=== PATIENT | female | born 1980 | race Caucasian/White ===

== ENCOUNTER 2018-02-05 15:17 | Emergency (ER) | payer MEDICAID, OTHER ==
[~2018-02-05] VITALS: Ht 172.7 cm; Wt 77.5 kg
[~2018-02-05 15:17] MED LIST: CYCL-1 PO; NO HOME MEDS
[2018-02-05] MEDS ORDERED: CefTRIAXone 2gm/D5W 50ml 50 ML IV ONE (15:30)
[2018-02-05] MEDS ORDERED: morphine 4 MG/ML inj SYRINge IV ONE (15:30)
[2018-02-05] MEDS ORDERED: ketorolac trometh. 30mg/ml inj. IV ONE (15:30)
[2018-02-05] MEDS ORDERED: methylPREDNISolone sod succ 125mg/2ml vial IV ONE (15:30)
[2018-02-05] MEDS ORDERED: normal saline 1000ML IV soln IV ONE (15:30)
[2018-02-05 16:07] LABS: BASOPHILS % (AUTO) 0.2 % (0-1); EOSINOPHILS % (AUTO) 0.2 % (0-6); HEMATOCRIT 39.9 % (35.0-45.0); HEMOGLOBIN 13.2 g/dl (12.0-16.0); LYMPHOCYTES # (AUTO) 1.2 X10'3 (1.1-4.8); LYMPHOCYTES % (AUTO) 5.9 % (21-51); MEAN CORPUSCULAR HEMOGLOBIN 30.3 PG (27.0-31.0); MEAN CORPUSCULAR HGB CONC 33.2 % (33.0-36.5); MEAN CORPUSCULAR VOLUME 91.2 FL (78-98); MEAN PLATELET VOLUME 7.5 FL (7.4-10.4); MONOCYTES # (AUTO) 1.6 X10'3 (0-0.9); NEUTROPHILS # (AUTO) 16.9 X10'3 (1.8-7.7); NEUTROPHILS % (AUTO) 85.7 % (42-75); PLATELET COUNT 325 X10'3 (140-440); RED BLOOD COUNT 4.38 X10'6 (4.20-5.60); RED CELL DISTRIBUTION WIDTH 13.6 % (11.5-14.5); WHITE BLOOD COUNT 19.7 X10'3 (4.5-11.0)
[2018-02-05] MEDS ORDERED: iohexol 300mg/ml 100ml inj. ONE (16:19)
[2018-02-05 16:21] LABS: ALANINE AMINOTRANSFERASE 17 U/L (12-78); ALBUMIN 2.5 G/DL (3.4-5.0); ALBUMIN/GLOBULIN RATIO 0.5 (1.1-1.5); ALKALINE PHOSPHATASE 110 IU/L (46-116); ANION GAP 4 (8-16); ASPARTATE AMINO TRANSFERASE 11 U/L (10-37); BILIRUBIN,TOTAL 0.3 MG/DL (0.1-1.0); BLOOD UREA NITROGEN 7 MG/DL (7-18); CHLORIDE 97 MMOL/L (99-107); CREATININE 0.88 MG/DL (0.40-0.90); GLUCOSE 109 MG/DL (70-104); POTASSIUM 3.3 MMOL/L (3.5-5.1); SODIUM 134 MMOL/L (135-145); TOTAL CARBON DIOXIDE 33.4 MMOL/L (24-32); TOTAL PROTEIN 7.5 G/DL (6.4-8.2); eGFR 73 ML/MIN
[2018-02-05] MEDS ORDERED: potassium Cl oral solution 20 MEQ/15 ML PO ONE (16:50)
[2018-02-05] MEDS ORDERED: METH4TAB3 PO (17:45)
[2018-02-05] MEDS ORDERED: HYDR-4383 PO (17:45)
[2018-02-05] MEDS ORDERED: ONDA4TAB6 PO (17:45)
[2018-02-05] MEDS ORDERED: LIDO20SO16 PO (17:45)
[2018-02-05] MEDS ORDERED: PENI250T2 PO (17:45)
[2018-02-05] MEDS ORDERED: ondansetron/PF 4mg/2ml inj IV ONE (18:30)
[2018-02-05 18:54] VITALS: BP 128/69
== END 2018-02-05 19:01 | disposition home or self-care (01) ==
LOC: ER 15:17
DX: J02.0 Streptococcal pharyngitis (principal); F12.90 Cannabis use, unspecified, uncomplicated; Z90.710 Acquired absence of both cervix and uterus; Z56.0 Unemployment, unspecified; Z88.5 Allergy status to narcotic agent; Z79.899 Other long term (current) drug therapy
CPT/HCPCS: 36415; 70491; 71045; 80053; 83605; 85025; 87040; 96365; 96375; 99285; J0696; J1885; J2270; J2405; J2930; Q9967

== ENCOUNTER 2018-06-22 21:00 | Emergency (ER) | payer MEDICAID, OTHER ==
[~2018-06-22] VITALS: Ht 172.7 cm; Wt 70.0 kg
[~2018-06-22 21:00] MED LIST changes: -CYCL-1 PO; +HYDR-4383 PO; +LIDO20SO16 PO; +METH4TAB3 PO; +ONDA4TAB6 PO
[2018-06-22 21:04] VITALS: BP 131/83
[2018-06-22 21:34] LABS: CLARITY,URINE CLEAR (Clear); COLOR,URINE YELLOW (Yellow); GLUCOSE, URINE NEGATIVE (Neg); KETONES,URINE NEGATIVE (Neg); LEUKOCYTE ESTERASE ,URINE NEGATIVE (Neg); NITRITES, URINE NEGATIVE (Neg); OCCULT BLOOD,URINE NEGATIVE (Neg); PH,URINE 5.5 (4.8-8.0); PROTEIN,URINE NEGATIVE (Neg); URINE HCG NEGATIVE (NEG); UROBILINOGEN,URINE 0.2 E.U/dL (0.2-1.0)
[2018-06-22 21:35] LABS: UA COLLECTION TYPE CLN CATCH MIDSTREAM
[2018-06-22] MEDS ORDERED: METR500T PO (22:34)
[2018-06-22] MEDS ORDERED: azithromycin 250mg tablet PO ONE (22:35)
[2018-06-22] MEDS ORDERED: CefTRIAXone 250MG inj IM ONE (22:35)
== END 2018-06-22 22:45 | disposition home or self-care (01) ==
LOC: ER 21:01
DX: A64 Unspecified sexually transmitted disease (principal); R19.7 Diarrhea, unspecified; F12.10 Cannabis abuse, uncomplicated; R10.30 Lower abdominal pain, unspecified; Z90.710 Acquired absence of both cervix and uterus; Z56.0 Unemployment, unspecified; Z88.5 Allergy status to narcotic agent
CPT/HCPCS: 36415; 81003; 81025; 87210; 87491; 87591; 99283; J0696

== ENCOUNTER 2019-09-14 03:34 | Emergency (ER) | payer MEDICAID ==
[~2019-09-14] VITALS: Ht 172.7 cm; Wt 79.5 kg
[2019-09-14 03:37] VITALS: BP 154/95
[2019-09-14] MEDS ORDERED: TETanus/Pertussis (Acell)/Diphther VAC/PF (Tdap-Adult) 0.5ml syringe IMVAC ONE (03:45)
[2019-09-14] MEDS ORDERED: amox tr/potassium clavulanate 875/125mg TAB PO ONE (03:45)
[2019-09-14] MEDS ORDERED: AMOX-580 PO (03:46)
== END 2019-09-14 04:03 | disposition home or self-care (01) ==
LOC: ER 03:35
DX: S91.331A Puncture wound without foreign body, right foot, initial encounter (principal); L03.115 Cellulitis of right lower limb; K08.89 Other specified disorders of teeth and supporting structures; F17.210 Nicotine dependence, cigarettes, uncomplicated; F12.90 Cannabis use, unspecified, uncomplicated; F19.90 Other psychoactive substance use, unspecified, uncomplicated; Z90.710 Acquired absence of both cervix and uterus; Z98.890 Other specified postprocedural states; Z72.89 Other problems related to lifestyle; Z56.0 Unemployment, unspecified; Z88.8 Allergy status to other drugs, medicaments and biological substances; Z79.2 Long term (current) use of antibiotics; Z79.899 Other long term (current) drug therapy; W50.0XXA Accidental hit or strike by another person, initial encounter; Y93.89 Activity, other specified; Y92.89 Other specified places as the place of occurrence of the external cause; Y99.8 Other external cause status
CPT/HCPCS: 90471; 90715; 99283

== ENCOUNTER 2020-05-20 23:25 | Emergency (ER) | payer MEDICAID ==
[~2020-05-20] VITALS: Ht 172.7 cm; Wt 80.1 kg
[2020-05-20 23:46] VITALS: BP 135/75
[2020-05-21] MEDS ORDERED: dexamethasone sod phosphate 10mg/ml inj IV STA (00:57)
[2020-05-21] MEDS ORDERED: CLINDAMYCIN/D5W 900mg/50ml 50 ML IV ONE (01:00)
[2020-05-21] MEDS ORDERED: normal saline 1000ML IV soln IVB ONE (01:00)
[2020-05-21 01:53] LABS: BASOPHILS # (AUTO) 0.1 X10'3 (0-0.2); BASOPHILS % (AUTO) 1.2 % (0-1); EOSINOPHILS # (AUTO) 0.2 X10'3 (0-0.9); EOSINOPHILS % (AUTO) 3.4 % (0-6); HEMOGLOBIN 12.2 g/dl (12.0-16.0); LYMPHOCYTES # (AUTO) 1.3 X10'3 (1.1-4.8); MEAN CORPUSCULAR HEMOGLOBIN 28.5 PG (27.0-31.0); MEAN CORPUSCULAR HGB CONC 32.1 g/dL (33.0-36.5); MEAN CORPUSCULAR VOLUME 88.8 FL (78-98); MEAN PLATELET VOLUME 7.7 FL (7.4-10.4); MONOCYTES # (AUTO) 0.7 X10'3 (0-0.9); MONOCYTES % (AUTO) 9.9 % (2-12); NEUTROPHILS # (AUTO) 4.3 X10'3 (1.8-7.7); NEUTROPHILS % (AUTO) 65.5 % (42-75); PLATELET COUNT 219 X10'3 (140-440); RED BLOOD COUNT 4.29 X10'6 (4.20-5.60); RED CELL DISTRIBUTION WIDTH 14.9 % (11.5-14.5); WHITE BLOOD COUNT 6.6 X10'3 (4.5-11.0)
[2020-05-21] MEDS ORDERED: iohexol 300mg/ml 100ml inj. ONE (01:59)
[2020-05-21 02:05] LABS: ALANINE AMINOTRANSFERASE 23 U/L (12-78); ALBUMIN 3.2 G/DL (3.4-5.0); ALBUMIN/GLOBULIN RATIO 0.7 (1.1-1.5); ALKALINE PHOSPHATASE 58 IU/L (46-116); ANION GAP 8 (8-16); ASPARTATE AMINO TRANSFERASE 17 U/L (10-37); BILIRUBIN,TOTAL 0.3 MG/DL (0.1-1.0); BLOOD UREA NITROGEN 8 MG/DL (7-18); BUN/CREATININE RATIO 9.8 (6.6-38.0); CALCIUM 9.1 MG/DL (8.5-10.1); CHLORIDE 103 MMOL/L (99-107); CREATININE 0.82 MG/DL (0.40-0.90); GLUCOSE 97 MG/DL (70-104); POTASSIUM 3.3 MMOL/L (3.5-5.1); SODIUM 141 MMOL/L (135-145); TOTAL CARBON DIOXIDE 30.4 MMOL/L (24-32); TOTAL PROTEIN 7.8 G/DL (6.4-8.2); eGFR 78 ML/MIN
[2020-05-21 02:13] LABS: BETA HCG,QUANTITATIVE < 1.0 mIU/ml
[2020-05-21] MEDS ORDERED: AMOX500C2 PO (03:11)
[2020-05-21] MEDS ORDERED: ONDA4TAB6 PO (03:11)
[2020-05-21] MEDS ORDERED: METH4TAB81 PO (03:11)
[2020-05-21] MEDS ORDERED: CLIN150C2 PO (03:11)
[2020-05-21] MEDS ORDERED: HYDR-3965 PO (03:11)
== END 2020-05-21 03:39 | disposition home or self-care (01) ==
LOC: ER 23:25
DX: J03.90 Acute tonsillitis, unspecified (principal); K02.9 Dental caries, unspecified; K00.7 Teething syndrome; I96 Gangrene, not elsewhere classified; K04.7 Periapical abscess without sinus; R59.0 Localized enlarged lymph nodes; F12.90 Cannabis use, unspecified, uncomplicated; F19.90 Other psychoactive substance use, unspecified, uncomplicated; Z90.710 Acquired absence of both cervix and uterus; Z98.890 Other specified postprocedural states; Z72.89 Other problems related to lifestyle; Z56.0 Unemployment, unspecified; Z88.8 Allergy status to other drugs, medicaments and biological substances; Z79.2 Long term (current) use of antibiotics; Z79.899 Other long term (current) drug therapy
CPT/HCPCS: 36415; 70491; 80053; 83605; 84145; 84702; 85025; 87040; 96361; 96365; 96375; 99285; J1100; J7030; Q9967; J3490

== ENCOUNTER 2020-10-23 10:56 | Emergency (ER) | payer MEDICAID ==
[~2020-10-23 10:56] MED LIST changes: +METH4TAB81 PO
== END 2020-10-23 12:29 | disposition left against medical advice (07) ==
LOC: ER 10:57
DX: L23.7 Allergic contact dermatitis due to plants, except food (principal); Z53.21 Procedure and treatment not carried out due to patient leaving prior to being seen by health care provider

== ENCOUNTER → 2020-11-03 | Emergency (ER) | payer MEDICAID ==
[~2020-11-03] VITALS: Ht 175.3 cm; Wt 77.0 kg
[2020-11-03 14:29] VITALS: BP 127/86
[2020-11-03 15:09] LABS: URINE HCG NEGATIVE (NEG)
[2020-11-03 15:10] LABS: CLARITY,URINE SLIGHTLY CLOUDY (Clear); COLOR,URINE YELLOW (Yellow); GLUCOSE, URINE NEGATIVE (Neg); KETONES,URINE NEGATIVE (Neg); LEUKOCYTE ESTERASE ,URINE NEGATIVE (Neg); NITRITES, URINE NEGATIVE (Neg); OCCULT BLOOD,URINE NEGATIVE (Neg); PH,URINE 5.5 (4.8-8.0); PROTEIN,URINE TRACE mg/dl (Neg); UA COLLECTION TYPE CLN CATCH MIDSTREAM; UROBILINOGEN,URINE 0.2 E.U/dL (0.2-1.0)
[2020-11-03 15:16] LABS: MUCUS STRANDS FEW /LPF (Neg); SQUAMOUS EPITHELIAL CELL,UR FEW /LPF (FEW)
[2020-11-03 15:17] LABS: BACTERIA,URINE FEW /HPF (Neg); RBC,URINE 0-2 /HPF (0-2); WBC,URINE 0-4 /HPF (0-4)
== END | disposition left against medical advice (07) ==
LOC: ER 13:53
DX: A63.8 Other specified predominantly sexually transmitted diseases (principal); Z53.21 Procedure and treatment not carried out due to patient leaving prior to being seen by health care provider
CPT/HCPCS: 81001; 81025

== ENCOUNTER 2020-11-12 09:08 | Emergency (ER) | payer MEDICAID ==
[~2020-11-12] VITALS: Ht 172.7 cm; Wt 79.5 kg
[2020-11-12 09:44] VITALS: BP 108/74
== END 2020-11-12 18:07 | disposition left against medical advice (07) ==
LOC: ER 09:08
DX: J02.9 Acute pharyngitis, unspecified (principal); Z53.21 Procedure and treatment not carried out due to patient leaving prior to being seen by health care provider

== ENCOUNTER 2022-09-14 21:57 | Emergency (ER) | payer MEDICAID ==
[~2022-09-14] VITALS: Ht 175.3 cm; Wt 100.0 kg
[2022-09-14 22:43] VITALS: BP 152/89
[2022-09-14] MEDS ORDERED: amox tr/potassium clavulanate 875/125mg TAB PO ONE (23:10)
[2022-09-14] MEDS ORDERED: AMOX-117 PO (23:12)
== END 2022-09-14 23:26 | disposition home or self-care (01) ==
LOC: ER 21:57
DX: R23.4 Changes in skin texture (principal); F12.90 Cannabis use, unspecified, uncomplicated; Z88.5 Allergy status to narcotic agent; Z90.710 Acquired absence of both cervix and uterus; Z56.0 Unemployment, unspecified
CPT/HCPCS: 99283

== ENCOUNTER 2023-01-12 18:49 | Emergency (ER) | payer MEDICAID ==
[~2023-01-12] VITALS: Ht 175.3 cm; Wt 100.0 kg
[2023-01-12 19:16] VITALS: TEMP 98.5
[2023-01-12] MEDS ORDERED: sulfamethoxazole/trimethoprim DS (800/160mg) tablet PO ONE (20:15)
[2023-01-12] MEDS ORDERED: TETanus/Pertussis (Acell)/Diphther VAC/PF (Tdap-Adult) 0.5ml syringe IMVAC ONE (20:15)
[2023-01-12] MEDS ORDERED: SULF1TAB49 PO (20:19)
--- NOTE | 2023-01-12 21:47 | NUR ---
GRABIEL mcclendon reviewed by RN, approved by this RN
[2023-01-12 21:51] VITALS: BP 135/79; PULSE 97; RESP 16; O2SAT 99
== END 2023-01-12 21:52 | disposition home or self-care (01) ==
LOC: ER 18:50
DX: L03.115 Cellulitis of right lower limb (principal); F12.90 Cannabis use, unspecified, uncomplicated; Z88.5 Allergy status to narcotic agent; Z79.899 Other long term (current) drug therapy; Z90.710 Acquired absence of both cervix and uterus
CPT/HCPCS: 90471; 90715; 99283; J7030; A6258; A6449